=== PATIENT | female | born 1995 | race Caucasian/White ===

== ENCOUNTER 2018-01-22 14:40 | Emergency (ER) | payer OTHER ==
[~2018-01-22] VITALS: Ht 165.1 cm; Wt 107.5 kg
[2018-01-22 14:48] VITALS: TEMP 36.9; Ht 165.1 cm; Wt 107.5 kg
[2018-01-22] MEDS ORDERED: PRENTAB26 PO (15:04)
[2018-01-22] MEDS ORDERED: ACET-1175 PO (15:04)
[2018-01-22 15:28] LABS: BASO % 0.2 %; BASO ABS # 0.02 K/uL (0-0.2); EOS % 1.1 %; EOS ABS # 0.12 K/uL (0-0.5); HEMATOCRIT 42.6 % (37-47); HEMOGLOBIN 14.9 g/dL (12.0-16.0); IG# 0.06 K/uL (0.00-0.02); LYMPH % 17.7 %; LYMPH ABS # 1.89 K/uL (1.2-3.4); MEAN CELL VOLUME 84.9 fL (80-100); MEAN CORPUSCULAR HEMOGLOBIN 29.7 pg (25-34); MEAN PLATELET VOLUME 8.9 fL (7.4-10.4); MONO % 6.6 %; NEUT % 73.8 %; NEUT ABS # 7.86 K/uL (1.4-6.5); PLATELET COUNT 290 K/uL (130-400); RED CELL DISTRIBUTION WIDTH CV 12.8 % (11.5-14.5); RED CELL DISTRIBUTION WIDTH SD 39.5 fL (36.4-46.3); WHITE BLOOD COUNT 10.65 K/uL (4.8-10.8)
[2018-01-22 15:44] LABS: CALCIUM 9.1 mg/dl (8.5-10.1); CREATININE 0.96 mg/dl (0.60-1.20); POTASSIUM 3.7 mmol/L (3.5-5.1)
[2018-01-22 17:06] VITALS: BP 115/69; PULSE 120; O2SAT 97
--- NOTE | 2018-01-22 17:12 | DIAGNOSTIC IMAGING REPORT ---
ECTOPIC , TRANSVAGINAL CLINICAL HISTORY: 22 years-old Female presenting with vag bleed 8 weeks , last menstrual period 12/13/2016. TECHNIQUE: Real-time grayscale and M-mode Doppler ultrasound imaging of the pelvis was performed first using a transabdominal probe and subsequently transvaginal for better characterization. Color and spectral Doppler ultrasound imaging of the adnexa was also performed. COMPARISON: None. FINDINGS: Uterus: Decidual reaction evident. Gestational sac and yolk sac evident. pole not visualized. Gestational sac measures 7 mm. Anteverted retroflexed uterus, which measures 8.4 x 4.3 x 5.6 cm. Fluid volume cannot be assessed given the early gestational age. Unable to accurately assess placental implantation secondary to early gestational age. 1.2 x 1.4 x 0.8 cm hypoechoic ill-defined collection and a perigestational location concerning for perigestational hemorrhage. This encompasses less than 50% of the circumference. Cervix long and closed. Right adnexum: Right ovary contains a corpus luteum. Right ovary measures 2.8 x 2.7 x 2.9 cm. Normal color Doppler flow and arterial and venous waveforms within the ovarian parenchyma. Left adnexum: Left ovary normal. Left ovary measures 3.4 x 2.3 x 2.1 cm. Normal color Doppler flow and arterial and venous waveforms within the ovarian parenchyma. Other: No free fluid. IMPRESSION: 1. Gestational sac and yolk sac evident within the endometrial cavity with a small perigestational hemorrhage. pole not visualized likely due to the early gestational age. Close clinical and imaging follow-up recommended. 2. No ovarian torsion. No evidence of ectopic . Electronically signed by: Ike Rick M.D. 01/22/2018 5:11 PM Dictated Date/Time: 01/22/2018 5:06 PM
--- NOTE | 2018-01-22 18:09 | EMERGENCY ROOM VISIT NOTE ---
History Report prepared by Mayra: Cora Johnson Under the Supervision of: Dr. Dagoberto Torres M.D. First contact with patient: 14:52 Chief Complaint: OTHER COMPLAINT Stated Complaint: 5 WKS ;SPOTTING CRAMPS;NAUSEA History of Present Illness The patient is a 22 year old female who presents to the Emergency Room with complaints of worsening vaginal discharge starting yesterday. The patient states that the discharge is brownish in color. The patient states that she believes she is 5 weeks and 5 days . She states that this is her first and she has never had an . The patient states that she had a positive test in December, but then had a period that started December 29, so thinks she got the next time she ovulated. She reports that her period was very light in December and her first day of her LNMP was November 14. She states that her beta HCG by blood kept decreasing which is why she thinks she may have have had a miscarriage. The patient denies taking any fertility medications. She denies having fever, but notes that she has not taken her temperature. The patient complains that she feels like vomiting. She denies any tubal , history of PID, history of gonorrhea, and chlamydia. She reports that she was just tested for all these things and it was negative. The patient complains of abdominal cramping. The patient denies problems urinating. Source of History: patient Onset: yesterday Position: other (global) Quality: other (vaginal discharge) Timing: worsening Associated Symptoms: + vomiting, + abdominal pain, No fevers, No urinary symptoms Review of Systems See HPI for pertinent positives & negatives. A total of 10 systems reviewed and were otherwise negative. Past Medical & Surgical Medical Problems: (1) No Known Active Medical Problems Family History No pertinent family history Social History Smoking Status: Never Smoker Marital Status: Housing Status: lives with significant other Occupation Status: employed Current/Historical Medications Scheduled Multivit/Min/Iron/Fol Ac/Pren ( Vitamin), 1 TAB PO DAILY Scheduled PRN Acetaminophen (Tylenol), 650 MG PO DIRECTED PRN for Pain or Fever Allergies Coded Allergies: No Known Allergies (Unverified , 01/22/18) Physical Exam Vital Signs Date Time Temp Pulse Resp B/P (MAP) Pulse Ox O2 Delivery O2 Flow Rate FiO2 01/22/18 17:06 120 18 115/69 97 Room Air 01/22/18 14:48 36.9 111 20 143/84 96 Room Air Physical Exam Constitutional: Vital signs reviewed. Eyes: Pupils are equal round reactive to light. Conjunctiva are noninjected. ENT: Pharynx is clear without erythema or exudate. Mucous membranes are moist. Neck supple without meningeal signs. Respiratory: Clear to auscultation bilaterally. Breath sounds are equal bilaterally. Cardiovascular: Regular rate and rhythm. No rubs or gallops. GI: Soft, nondistended and nontender. Bowel sounds are present. Musculoskeletal: No peripheral edema. No CVA tenderness. Integumentary: No cyanosis. Neurological: The patient is awake and alert. No focal deficits. Psychiatric: Normal affect. Medical Decision & Procedures ER Provider Diagnostic Interpretation: Radiology results as stated below per my review and the radiologist's interpretation: ECTOPIC , TRANSVAGINAL CLINICAL HISTORY: 22 years-old Female presenting with vag bleed 8 weeks , last menstrual period 12/13/2016. TECHNIQUE: Real-time grayscale and M-mode Doppler ultrasound imaging of the pelvis was performed first using a transabdominal probe and subsequently transvaginal for better characterization. Color and spectral Doppler ultrasound imaging of the adnexa was also performed. COMPARISON: None. FINDINGS: Uterus: Decidual reaction evident. Gestational sac and yolk sac evident. pole not visualized. Gestational sac measures 7 mm. Anteverted retroflexed uterus, which measures 8.4 x 4.3 x 5.6 cm. Fluid volume cannot be assessed given the early gestational age. Unable to accurately assess placental implantation secondary to early gestational age. 1.2 x 1.4 x 0.8 cm hypoechoic ill-defined collection and a perigestational location concerning for perigestational hemorrhage. This encompasses less than 50% of the circumference. Cervix long and closed. Right adnexum: Right ovary contains a corpus luteum. Right ovary measures 2.8 x 2.7 x 2.9 cm. Normal color Doppler flow and arterial and venous waveforms within the ovarian parenchyma. Left adnexum: Left ovary normal. Left ovary measures 3.4 x 2.3 x 2.1 cm. Normal color Doppler flow and arterial and venous waveforms within the ovarian parenchyma. Other: No free fluid. IMPRESSION: 1. Gestational sac and yolk sac evident within the endometrial cavity with a small perigestational hemorrhage. pole not visualized likely due to the early gestational age. Close clinical and imaging follow-up recommended. 2. No ovarian torsion. No evidence of ectopic . Electronically signed by: Ike Rick M.D. 01/22/2018 5:11 PM Dictated Date/Time: 01/22/2018 5:06 PM Laboratory Results 01/22/18 15:15 Red Blood Count 5.02, Mean Corpuscular Volume 84.9, Mean Corpuscular Hemoglobin 29.7, Mean Corpuscular Hemoglobin Concent 35.0, Mean Platelet Volume 8.9, Neutrophils (%) (Auto) 73.8, Lymphocytes (%) (Auto) 17.7, Monocytes (%) (Auto) 6.6, Eosinophils (%) (Auto) 1.1, Basophils (%) (Auto) 0.2, Neutrophils # (Auto) 7.86, Lymphocytes # (Auto) 1.89, Monocytes # (Auto) 0.70, Eosinophils # (Auto) 0.12, Basophils # (Auto) 0.02 01/22/18 15:15 Test 01/22/18 15:15 01/22/18 16:30 White Blood Count 10.65 K/uL (4.8-10.8) Red Blood Count 5.02 M/uL (4.2-5.4) Hemoglobin 14.9 g/dL (12.0-16.0) Hematocrit 42.6 % (37-47) Mean Corpuscular Volume 84.9 fL (80-100) Mean Corpuscular Hemoglobin 29.7 pg (25-34) Mean Corpuscular Hemoglobin Concent 35.0 g/dl (32-36) Platelet Count 290 K/uL (130-400) Mean Platelet Volume 8.9 fL (7.4-10.4) Neutrophils (%) (Auto) 73.8 % Lymphocytes (%) (Auto) 17.7 % Monocytes (%) (Auto) 6.6 % Eosinophils (%) (Auto) 1.1 % Basophils (%) (Auto) 0.2 % Neutrophils # (Auto) 7.86 K/uL (1.4-6.5) Lymphocytes # (Auto) 1.89 K/uL (1.2-3.4) Monocytes # (Auto) 0.70 K/uL (0.11-0.59) Eosinophils # (Auto) 0.12 K/uL (0-0.5) Basophils # (Auto) 0.02 K/uL (0-0.2) RDW Standard Deviation 39.5 fL (36.4-46.3) RDW Coefficient of Variation 12.8 % (11.5-14.5) Immature Granulocyte % (Auto) 0.6 % Immature Granulocyte # (Auto) 0.06 K/uL (0.00-0.02) Anion Gap 7.0 mmol/L (3-11) Est Creatinine Clear Calc Drug Dose 110.1 ml/min Estimated GFR () 95.9 Estimated GFR (Non- 82.8 BUN/Creatinine Ratio 5.8 (10-20) Calcium Level 9.1 mg/dl (8.5-10.1) Human Chorionic Gonadotropin, Quant 1999 mIU/mL Urine Color YELLOW Urine Appearance CLEAR (CLEAR) Urine pH 6.0 (4.5-7.5) Urine Specific [place] 1.016 (1.000-1.030) Urine Protein NEG (NEG) Urine Glucose (UA) NEG (NEG) Urine Ketones NEG (NEG) Urine Occult Blood TRACE (NEG) Urine Nitrite NEG (NEG) Urine Bilirubin NEG (NEG) Urine Urobilinogen NEG (NEG) Urine Leukocyte Esterase LARGE (NEG) Urine WBC (Auto) >30 /hpf (0-5) Urine RBC (Auto) 0-4 /hpf (0-4) Urine Hyaline Casts (Auto) 1-5 /lpf (0-5) Urine Epithelial Cells (Auto) 20-30 /lpf (0-5) Urine Bacteria (Auto) 1+ (NEG) Laboratory results as reviewed by me. ED Course 1453: The patient was evaluated in room C6. A complete history and physical exam was performed. 1551: I reviewed the patient's past lab work from outside the hospital and her blood type in December was A+. On January 16 her Beta HCG was 272. 1700: I reevaluated the patient and her blood pressure is normal now. I discussed the test results with her including the urinalysis. We are awaiting the results of the ultra sound. 1717: Upon reevaluation, the patient appeared to have improvement of her symptoms. I discussed tonight's findings with her. She verbalized agreement of the treatment plan. The patient was discharged home. Medical Decision This is a 22-year-old female is pending with vaginal spotting and crampy lower abdominal pain. Differential diagnosis includes threatened miscarriage, ectopic , miscarriage, UTI, ovarian cyst. I did perform a limited focused review of portions of the patient's old chart on the electronic medical record. The patient has had no recent pertinent visits to this hospital. I did evaluate the patient as noted above. IV access was established. Her blood pressure was initially elevated but came down to normal without intervention.I did order and personally review the patient's urinalysis as described above. Findings are equivocal and the patient denies any urinary symptoms. A urine culture was sent. I did order and review the patient's blood work as noted in the electronic medical record. Beta-hCG is 1999. She is not anemic. Her white blood cell count is not elevated. I did order an ultrasound of the pelvis. I did review the images myself as well as the radiology report as described above. She does have a yolk sac without a pole. There is a sarah-gestational hemorrhage as well. Per the epic records her blood type is a positive and so she does not need RhoGam. I did discuss the test results with the patient. 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 She was given precautions regarding activity. She was discharged in good condition. Medication Reconcilliation Current Medication List: was personally reviewed by me Blood Pressure Screening Patient's blood pressure: Elevated blood pressure Blood pressure disposition: Referred to PCP Impression Primary Impression: Threatened miscarriage Scribe Attestation The scribe's documentation has been prepared under my direct and personally reviewed by me in its entirety. I confirm that the note above accurately reflects all work, treatment, procedures, and medical decision making performed by me. Departure Information Dispostion Home / Self-Care Referrals No Doctor, Assigned (PCP) Forms HOME CARE DOCUMENTATION FORM, IMPORTANT VISIT INFORMATION, WORK / SCHOOL INSTRUCTIONS Patient Instructions My [facility] Additional Instructions You have been examined and treated today on an emergency basis only. This is not a substitute for, or an effort to provide, complete comprehensive medical care. It is impossible to recognize and treat all injuries or illnesses in a single emergency department visit. It is therefore important that you follow up closely with your labor law professor this week. Call as soon as possible for an appointment. Return for worsening symptoms or if you develop fever, increased bleeding or pain or any other concerning symptoms.
== END 2018-01-22 17:32 | disposition home or self-care (01) ==
LOC: C.EDB 14:44 → C.EDC 17:32
DX: O20.0 Threatened abortion (principal)